=== PATIENT | female | born 1985 | race Caucasian/White ===

== ENCOUNTER 2017-03-11 20:46 | Emergency (ER) | payer OTHER ==
--- NOTE | ~2017-03-11 | CT4 ---
[facility] A Service of [facility] & [facility] RADIOLOGY TEXT RESULTS PATIENT: VENITA FERNANDEZ LOCATION: SED : 85 UNIT #: [id number] AGE: [address]: Saleem Henderson SEX: F ORDER DR: [id number] [address] [address] [id number] MR#: [id number] Acc #: [id number] NAME: VENITA FERNANDEZ : 1985 SEX: F STUDY DATE/TIME: 03/11/2017 21:58 UNIT: SED ROOM: STUDY DESCRIPTION: CT Abd and Pelv Wo Cont Attending Physician: Saleem Henderson P.A.-C. Ordering Physician: Saleem Henderson P.A.-C. Primary Care Physician: Lenore Sibley M.D. MEDICAL IMAGING REPORT This report is preliminary unless electronic signature is present. EXAM CT of the abdomen and pelvis without contrast, dated 03/11/2017. COMPARISON CT abdomen and pelvis without contrast, dated 05/25/2016. HISTORY Renal pain, bladder pain, bilateral flank pain for [address] exam was performed with one or more of the following radiation dose reduction techniques: automatic exposure control, adjustment of mA and/or kV according to patient size, and iterative reconstruction. FINDINGS CT of the abdomen and pelvis were obtained without IV or oral contrast in the axial plane followed by sagittal and coronal reformats. LOWER CHEST: Small hiatal hernia is seen. Minimal atelectatic changes are noted in the left lower lobe. Heart is of normal size. Bones are unremarkable. ABDOMEN: There are 6 to 7 punctate 1 mm hyperdensities in the left kidney and 1 to 2 in the right kidney. There is mild right hydronephrosis and right hydroureter with a 4 mm slightly obstructing stone in the junction of the mid to distal third of the right ureter at the level of the pelvic inlet. Urinary bladder is unremarkable. Along its posterolateral aspect, within the soft tissues, there is a 3.5 mm calcification which is new when compared to the prior study from less than a year ago. It could represent a distal left ureteral stone or an adjacent phlebolith. No obvious left hydroureter could be seen. Lack of IV contrast limits evaluation of solid organs. Grossly they are STS. [facility] A Service of [facility] & [facility] RADIOLOGY TEXT RESULTS PATIENT: VENITA FERNANDEZ LOCATION: [place] : [birth year] UNIT #: [id number] AGE: [address]: Saleem Henderson SEX: F ORDER DR: probably within normal limits. Spleen, pancreas, adrenal glands are unremarkable too. Lack of oral contrast limits evaluation of hollow organs. No obvious bowel obstruction, free fluid or free air is seen intraperitoneally. Appendix and gallbladder are unremarkable. No obvious aortic aneurysmal dilatation or significant lymphadenopathy is seen. Degenerative changes are noted in the spine. Small fatty umbilical hernia is seen. PELVIS: Copper T intrauterine device is seen. Bilateral ovaries are age appropriate. Urinary bladder and adjacent soft tissues have been described above in the abdomen findings. Bones do not demonstrate any significant abnormality. IMPRESSION 1. Multiple bilateral nonobstructing renal stones are noted, more in the left when compared to the right measuring less than 2 to 3 mm. 2. There is a 4 mm calcification noted in the junction of the mid to distal third of the right ureter with associated mild right hydroureter and right hydronephrosis. 3. There is a 3.5 mm calcification noted within the soft tissues in the left posterolateral aspect of the urinary bladder. It could represent a phlebolith or a distal left ureteral stone. It is new when compared to the previous study from less than a year ago. 4. No evidence of bowel obstruction, free fluid or free air intraperitoneally. 5. Appendix and gallbladder are unremarkable. Dictated by... Chandu Roque M.D. THIS IS AN ELECTRONICALLY VERIFIED REPORT Chandu Roque M.D. at 03/14/2017 1:40 PM CPR/cs TD: 03/12/2017 18:37 JOB #: [id number] MEDICAL IMAGING REPORT Page 1 of 1
[2017-03-11 20:28] LABS: URINE SOURCE CLEAN CATCH
[2017-03-11 20:31] LABS: URINE APPEARANCE HAZY; URINE BILIRUBIN NEG (NEG); URINE BLOOD 3+ (NEG); URINE COLOR YELLOW; URINE GLUCOSE NEG (NORM); URINE KETONE NEG (NEG); URINE LEUKOCYTE ESTERASE TRACE (NEG); URINE NITRATE NEG (NEG); URINE PH 5.5 (5-8); URINE PROTEIN TRACE (NEG); URINE UROBILINOGEN 0.2 MG/DL (NORM)
[2017-03-11 20:32] LABS: MICRO INDICATED? YES
[2017-03-11 20:37] LABS: URINE RBC INNUM /[HPF] (0-2)
[2017-03-11 20:38] LABS: CULTURE INDICATED? YES; URINE BACTERIA 1+ (NEG); URINE CRYSTALS CALCIUM OXALATE /[HPF]; URINE MUCUS PRESENT; URINE SQUAMOUS EPITHELIAL CELL MODERATE /[HPF]
[~2017-03-11 20:46] MED LIST: AMLODIPINE BES2.5 MG PO; CIPRO PO; FLOMAX0.4 M1 PO; HYDROCODON-ACE1 EAC7 PO; LO/OVRAL-281 TAB PO; LORTAB 5/500 TA1 TA1 PO; NITROFURANTOIN100 M3; NO MEDICATIONS; OMNICEF300 M1 PO; ORUDIS75 M1 PO; PHENERGAN25 M1 PO; PYRIDIUM100 MG PO; ZOFRAN ODT4 MG PO
[2017-03-11 21:02] LABS: BASOPHIL# 0.1 X10e3 (0-0.3); BASOPHIL% 0.7 % (0-2.5); EOSINOPHIL# 0.1 X10e3 (0-0.7); EOSINOPHIL% 1.1 % (0.0-7.0); HEMATOCRIT 38.1 % (35.0-45.0); HEMOGLOBIN 12.8 gm/dL (12.0-16.0); LYMPHOCYTE# 3.3 X10e3 (1.0-3.5); LYMPHOCYTE% 26.3 % (17.0-45.0); MEAN CELL VOLUME 88.3 FL (83-96); MEAN CORPUSCULAR HEMOGLOBIN 29.6 PG (28-34); MEAN CORPUSCULAR HGB CONC 33.6 g/dL (30-36); MONOCYTE# 0.8 X10e3 (0-1.0); MONOCYTE% 6.6 % (3.0-12.0); NEUTROPHIL# 8.2 X10e3 (1.5-7.1); NEUTROPHIL% 65.3 % (40-75); PLATELET COUNT 300 X10e3 (140-420); RED BLOOD COUNT 4.31 X10e (3.90-5.30); RED CELL DISTRIBUTION WIDTH 13.1 % (11.0-15.5); WHITE BLOOD COUNT 12.6 X10e3 (4.0-10.5)
[2017-03-11 21:04] LABS: DIFF IND NO
[2017-03-11 21:24] LABS: ALBUMIN SERUM 4.2 g/dL (3.5-5.0); BILIRUBIN, DIRECT 0.1 mg/dL (0.0-0.2); BILIRUBIN,INDIRECT 0.4 mg/dL (0.0-0.9); BILIRUBIN,TOTAL 0.5 mg/dL (0.2-2.0); BUN/CREATININE RATIO 12.5; CALCIUM SERUM 9.2 mg/dL (8.4-10.2); CREATININE SERUM 0.8 mg/dL (0.6-1.4); GLOM FILT RATE Estimated 98.3 mL/min (>60); POTASSIUM 3.3 mmol/L (3.5-5.1); PROTEIN TOTAL SERUM 7.2 g/dL (6.0-8.3)
== END 2017-03-11 23:35 | disposition home or self-care (01) ==
LOC: SED 20:46
PROVIDERS: Physician Assistant
DX: N13.2 Hydronephrosis with renal and ureteral calculous obstruction (principal); I10 Essential (primary) hypertension; Z87.442 Personal history of urinary calculi; Z98.890 Other specified postprocedural states
CPT/HCPCS: 36415; 74176; 80048; 80076; 81003; 83690; 84703; 85025; 87086; 96361; 96374; 96375; 99284; J1885; J2405